=== PATIENT | male | born 1955 | race Caucasian/White ===

== ENCOUNTER 2017-04-13 08:20 | Inpatient (IN) ==
[2017-04-13] MEDS ORDERED: LEVOFLOXACIN 750 MG/150 ML BAG IV ONE (08:54)
[2017-04-13] MEDS ORDERED: IPRATROPIUM/ALBUTEROL 3 ML AMPUL.NEB NEB ONE (08:54)
[2017-04-13] MEDS ORDERED: ACETAMINOPHEN 325 MG TABLET PO ONE (08:54)
[2017-04-13] MEDS ORDERED: 0.9 % SODIUM CHLORIDE 1,000 ML IV ONE (08:54)
[2017-04-13] MEDS ORDERED: methylPREDNISolone SOD SUCC 125 MG/2 ML VIAL IV ONE (08:54)
[2017-04-13] MEDS ORDERED: OSELTAMIVIR PHOSPHATE 75 MG CAPSULE PO ONE (08:56)
--- NOTE | 2017-04-13 08:59 | Emergency Department Note ---
SOB HPI - General Chief Complaint: Shortness of Breath/Dyspnea Stated Complaint: Shortness of breath Time Seen by Provider: 04/13/17 08:44 Source: EMS Mode of arrival: EMS Limitations: no limitations - History of Present Illness Presents, brought in by and caregiver from home. 24 hours of sudden onset fevers chills and cough. Hypoxic at home, 84% on room monitor. Diminished mentation with generalized weakness. Poor historian, traumatic brain injury. states hospitalized 1 month ago at [facility], bilateral pneumonia at that time. History of emphysema, on Spiriva. - Related Data Home Medications Medication Instructions Recorded Confirmed DULoxetine 60 mg PO DAILY 11/01/14 10/19/16 Lamotrigine 15 mg PO HS 11/01/14 10/19/16 Morphine Sulfate 15 mg PO BID 11/01/14 10/19/16 OLANZapine [Olanzapine] 20 mg PO BID 11/01/14 10/19/16 Propranolol 60 mg PO DAILY 11/01/14 10/19/16 Furosemide [Lasix] 20 mg PO DAILY 12/18/14 10/19/16 Potassium Chloride [Kdur] 10 meq PO ONCE 10/19/16 10/19/16 Allergies Allergy/AdvReac Type Severity Reaction Status Date / Time lorazepam [From Ativan] AdvReac Unknown Other Verified 04/13/17 08:24 Review of Systems Constitutional: Reports: fever, chills Respiratory: Reports: shortness of breath, cough Past Medical History - Past Medical History Attestation: Yes: The following information was validated with the patient. Medical history: Reports: COPD, hypertension, other (Brain tumor, left ventricular dysfunction) Psychiatric history: Reports: bipolar Surgical history ED: Reports: non-contributory, other (Surgery to remove a brain tumor) Family history: Reports: non-contributory - Social History smoking status: Former smoker Alcohol use: Reports: Unknown Drug use: Reports: unknown Physical Exam Limitations: no limitations General appearance: lethargic, malaise Head: atraumatic, normocephalic Eye: Present: normal appearance ENT: normal exam, mucous membranes moist Neck: Present: normal inspection. Absent: lymphadenopathy Chest: Present: normal inspection Respiratory: Present: normal lung sounds bilaterally, other (Panting). Absent: respiratory distress Cardiovascular: Present: regular rate Abdominal: Present: soft. Absent: tenderness Extremities: Present: pretibial edema (2+, nonpitting) Neurological: Absent: alert Skin: Present: warm, dry Course Vital Signs Temperature 101.3 F H 04/13/17 08:21 Pulse Rate 109 H 04/13/17 08:21 Respiratory Rate 18 04/13/17 08:21 Blood Pressure 155/108 04/13/17 08:21 Pulse Oximetry (%) 84 L 04/13/17 08:21 Temperature 101.3 F H 04/13/17 08:21 Pulse Rate 109 H 04/13/17 08:21 Respiratory Rate 20 04/13/17 08:43 Blood Pressure 155/108 04/13/17 08:21 Pulse Oximetry (%) 84 L 04/13/17 08:21 Disposition Pt seen by PRECONSTRUCTION MANAGER/PA only: No Clinical Impression: Hypoxia, Acute febrile illness Summary: Suspect influenza with superimposed pneumonia Initial orders, workup ordered Patient signed out to Dr. Roca, please see his note for discussion of findings , final diagnosis and disposition Referrals: Vic Nayak MD [Primary Care Provider] -
[2017-04-13 09:30] LABS: Basophils # (Auto) 0 K/mcL (0.0-0.3); Basophils % (Auto) 0 % (0.0-2.0); Eosinophils # (Auto) 0.1 K/mcL (0.0-0.7); Eosinophils % (Auto) 2.3 % (0.0-7.0); Granulocytes % (Auto) 81.2 % (38.0-78.0); Lymphocytes # (Auto) 0.6 K/mcL (1.5-4.8); Lymphocytes % (Auto) 9.3 % (15.5-49.0); Mean Corpuscular HGB Conc 33.8 g/dL (31.0-36.0); Mean Corpuscular Hemoglobin 30.8 pg (26.0-34.0); Monocytes # (Auto) 0.5 K/mcL (0.1-0.9); Monocytes % (Auto) 7.2 % (1.0-12.0); Platelet Count 101 K/mcL (140-440); RBC 4.32 M/mcL (4.50-5.90)
[2017-04-13 09:57] LABS: ALT/SGPT 45 U/l (0-40); Alkaline Phosphatase 106 U/L (39-117); Blood Urea Nitrogen 15 mg/dl (6-20)
--- NOTE | 2017-04-13 10:32 | XRay Report ---
CLINICAL INFORMATION: Fever and hypoxia COMPARISON: 03/31/2015 FINDINGS: The heart is mildly enlarged but unchanged. Ectatic thoracic aorta again noted. Pulmonary vessels are unremarkable. Small patchy infiltrate has developed in the left base. Minor scarring. IMPRESSION: Small patchy left basilar infiltrate. Suggest two-view upright chest x-ray for better assessment in one to two days Interpreted and Authenticated by: Nabeel Narvaez 04/13/17
--- NOTE | 2017-04-13 11:03 | Emergency Department Note ---
SOB HPI - General Chief Complaint: Shortness of Breath/Dyspnea Stated Complaint: Shortness of breath Time Seen by Provider: 04/13/17 08:44 Source: patient, family, EMS Mode of arrival: EMS Limitations: no limitations - History of Present Illness This patient was checked out to me by Dr. cardoza at shift change. I reviewed his note. - Related Data Home Medications Medication Instructions Recorded Confirmed DULoxetine HCL [Cymbalta] 60 mg PO DAILY 11/01/14 04/13/17 OLANZapine [Olanzapine] 20 mg PO HS 11/01/14 04/13/17 lamoTRIgine [Lamictal] 200 mg PO DAILY 11/01/14 04/13/17 morphine [Ms Contin] 15 mg PO BID 11/01/14 04/13/17 Furosemide [Lasix] 20 mg PO DAILY 12/18/14 04/13/17 Potassium Chloride [Kdur] 10 meq PO ONCE 10/19/16 04/13/17 Albuterol Sulfate [Ventolin] 2 puff INH Q4HP PRN 04/13/17 04/13/17 Gabapentin [Neurontin] 600 mg PO HS 04/13/17 04/13/17 Tiotropium [place] [Spiriva] 18 mcg INH DAILY 04/13/17 04/13/17 amLODIPine [Norvasc] 5 mg PO DAILY 04/13/17 04/13/17 buPROPion HCL [Wellbutrin Xl] 300 mg PO DAILY 04/13/17 04/13/17 levETIRAcetam [Keppra] 250 mg PO HS 04/13/17 04/13/17 Allergies Allergy/AdvReac Type Severity Reaction Status Date / Time lorazepam [From Ativan] AdvReac Intermediate "makes me Verified 04/13/17 12:25 go crazy" Review of Systems Constitutional: Reports: fever, chills Respiratory: Reports: shortness of breath, cough Past Medical History - Past Medical History Medical history: Reports: COPD, hypertension, other (Brain tumor, left ventricular dysfunction) Psychiatric history: Reports: bipolar Surgical history ED: Reports: non-contributory, other (Surgery to remove a brain tumor) - Social History smoking status: Former smoker Alcohol use: Reports: Unknown Drug use: Reports: unknown Physical Exam Limitations: no limitations General appearance: lethargic, malaise Course Vital Signs Temperature 101.3 F H 04/13/17 08:21 Pulse Rate 109 H 04/13/17 08:21 Respiratory Rate 18 04/13/17 08:21 Blood Pressure 155/108 04/13/17 08:21 Pulse Oximetry (%) 84 L 04/13/17 08:21 Temperature 98.2 F 04/14/17 04:00 Pulse Rate 79 04/14/17 04:00 Respiratory Rate 20 04/14/17 04:00 Blood Pressure 108/66 04/14/17 04:00 Pulse Oximetry (%) 94 04/14/17 04:00 Shortness of Breath/Dyspnea - Lab Data Lab results reviewed: Yes I reviewed the patient's lab results. Result diagrams: 04/14/17 03:45 04/13/17 09:01 Lab Results 04/13/17 04/13/17 04/13/17 Range/Units 09:01 09:01 09:01 WBC 6.3 (4.5-11.0) K/mcL RBC 4.32 L (4.50-5.90) M/mcL Hgb 13.3 L (13.5-16.5) g/dL Hct 39.3 L (41.0-55.0) % MCV 91.0 (80.0-100.0) fL MCH 30.8 (26.0-34.0) pg MCHC 33.8 (31.0-36.0) g/dL RDW 16.0 H (11.5-14.5) % Plt Count 101 L (140-440) K/mcL MPV 7.9 (7.4-10.4) fL Gran % 81.2 H (38.0-78.0) % Lymph % (Auto) 9.3 L (15.5-49.0) % Foard % (Auto) 7.2 (1.0-12.0) % Eos % (Auto) 2.3 (0.0-7.0) % Baso % (Auto) 0 (0.0-2.0) % Gran # 5.1 (1.8-8.0) K/mcL Lymph # (Auto) 0.6 L (1.5-4.8) K/mcL Foard # (Auto) 0.5 (0.1-0.9) K/mcL Eos # (Auto) 0.1 (0.0-0.7) K/mcL Baso # (Auto) 0 (0.0-0.3) K/mcL VBG Lactic Acid (0.5-2.2) mmol/L Sodium 136 (133-145) mmol/L Potassium 4.1 (3.3-5.1) mmol/L Chloride 99 (96-108) mmol/L Carbon Dioxide 24 (22-30) mmol/L Anion Gap 13.0 (8-16) BUN 15 (6-20) mg/dl Creatinine 0.9 (0.7-1.2) mg/dl GFR Calculation 93 Glucose 136 H (70-105) mg/dL Calcium 8.9 (8.6-10.4) mg/dl Total Bilirubin 0.7 (0.0-1.0) mg/dL AST 58 H (0-37) U/l ALT 45 H (0-40) U/l Alkaline Phosphatase 106 (39-117) U/L Total Protein 8.2 (5.9-8.4) gm/dL Albumin 4.0 (3.2-5.2) gm/dL Globulin 4.2 H (2.2-3.7) gm/dL Albumin/Globulin Ratio 1.0 (1.0-2.3) Procalcitonin 0.11 (<0.10) ng/mL 04/13/17 Range/Units 09:01 WBC (4.5-11.0) K/mcL RBC (4.50-5.90) M/mcL Hgb (13.5-16.5) g/dL Hct (41.0-55.0) % MCV (80.0-100.0) fL MCH (26.0-34.0) pg MCHC (31.0-36.0) g/dL RDW (11.5-14.5) % Plt Count (140-440) K/mcL MPV (7.4-10.4) fL Gran % (38.0-78.0) % Lymph % (Auto) (15.5-49.0) % Foard % (Auto) (1.0-12.0) % Eos % (Auto) (0.0-7.0) % Baso % (Auto) (0.0-2.0) % Gran # (1.8-8.0) K/mcL Lymph # (Auto) (1.5-4.8) K/mcL Foard # (Auto) (0.1-0.9) K/mcL Eos # (Auto) (0.0-0.7) K/mcL Baso # (Auto) (0.0-0.3) K/mcL VBG Lactic Acid 1.6 (0.5-2.2) mmol/L Sodium (133-145) mmol/L Potassium (3.3-5.1) mmol/L Chloride (96-108) mmol/L Carbon Dioxide (22-30) mmol/L Anion Gap (8-16) BUN (6-20) mg/dl Creatinine (0.7-1.2) mg/dl GFR Calculation Glucose (70-105) mg/dL Calcium (8.6-10.4) mg/dl Total Bilirubin (0.0-1.0) mg/dL AST (0-37) U/l ALT (0-40) U/l Alkaline Phosphatase (39-117) U/L Total Protein (5.9-8.4) gm/dL Albumin (3.2-5.2) gm/dL Globulin (2.2-3.7) gm/dL Albumin/Globulin Ratio (1.0-2.3) Procalcitonin (<0.10) ng/mL ABG shows pH 7.37 PCO2 52 PO2 of 67 on 2 L nasal cannula - Radiology Data Radiology results reviewed: Yes I reviewed the patient's radiology results. Chest x-ray shows left lower lobe infiltrate likely - EKG Data EKG attestation: Yes I reviewed and interpreted this EKG. EKG results narrative: EKG shows a rate of 102 long UT left axis deviation. Sinus tachycardia with nonspecific ST elevation in V1 and V2 minimal Disposition Pt seen by TRANSPORTATION JOB TITLES/PA only: No Clinical Impression: Hypoxia, Acute febrile illness Community acquired pneumonia Qualifiers: Laterality: left Lung location: lower lobe of lung Qualified Code(s): J18.1 - Lobar pneumonia, unspecified organism Summary: Patient is found to have likely pneumonia left lower lobe along with new hypoxia. He was recently admitted and discharged from [facility] for bilateral pneumonia about a month ago. Blood cultures were done and Levaquin and Tamiflu were started. Though flu swab was negative. Steroids were started as he has a history of reactive airways with likely COPD is a former smoker. See Dr. cardoza's orders He is going to require hospitalization secondary to new hypoxia, fever and need for IV antibiotics for pneumonia. I discussed the case with Dr. Daley, the hospitalist, she agreed to accept patient in transfer Disposition: Xfer As Inpt ([facility]) Condition: Fair
[2017-04-13] MEDS ORDERED: MAGNESIUM HYDROXIDE 30 ML ORAL.SUSP PO PRN (11:57)
[2017-04-13] MEDS ORDERED: ACETAMINOPHEN 325 MG TABLET PO PRN (11:57)
[2017-04-13] MEDS ORDERED: IPRATROPIUM/ALBUTEROL 3 ML AMPUL.NEB NEB PRN (11:57)
[2017-04-13] MEDS: 0.9 % SODIUM CHLORIDE 10 ML SYRINGE IV SCH ×2 (14:52→21:51)
--- NOTE | 2017-04-13 18:10 | Internal Med History&Physical ---
Medical - H&P: HPI Patient information: Note initiated : 04/13/17 at 5:51 pm Service Date, if different from initiated Date: [] Patient: John Thomas a 61 y/o M admitted on 04/13/17 for Shortness of breath. Chief Complaint: [shortness of breath and fever] History of present illness: Mr. Thomas is a 61 year old M, brought to ED by significant other Piedad, with sudden onset of fever, chills and cough. Patient was hypersomnolent and spot check by home oximeter showed O2 sat of 84%. Patient is on multiple meds for chronic back pain and has history of VIET, but is usually not hypersomnolent like this am. Patient had similar presentation in early Feb when he presented to [facility] and was diagnosed with pneumonia and treated with Rocephin and Azithromycin. CXR showed 'blunting of costophrenic angle'. 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 Since then has been 'forgetful' and impulsive'. However, is still active. C/O chronic back pain due to injury many years ago. - Constitutional Constitutional: Present: chills, fever(s) - Cardiovascular Cardiovascular: Absent: chest pain, orthopnea, palpatations - Respiratory Respiratory: Present: cough. 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 VIET Morbid obesity Hx of esophageal varices (due to hx of alcohol abuse) Chronic diastolic heart failure Chronic low back pain Narcotic dependence Nicotine use (cigars) Anxiety Depression Surgical history: S/P temperoparietal occipital craniotomy Feb 2015 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, 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 Smoking status: Light tobacco smoker Have you smoked in the last 12 months: Yes Time spent discussing smoking cessation with patient: 3 to 10 minutes Drug use: none Alcohol use: none Medical - H&P: Meds Home Medications Medication Instructions Recorded Confirmed Type DULoxetine HCL [Cymbalta] 60 mg PO DAILY 11/01/14 04/13/17 History OLANZapine [Olanzapine] 20 mg PO HS 11/01/14 04/13/17 History lamoTRIgine [Lamictal] 200 mg PO DAILY 11/01/14 04/13/17 History morphine [Ms Contin] 15 mg PO BID 11/01/14 04/13/17 History Furosemide [Lasix] 20 mg PO DAILY 12/18/14 04/13/17 History Potassium Chloride [Kdur] 10 meq PO ONCE 10/19/16 04/13/17 History Albuterol Sulfate [Ventolin] 2 puff INH Q4HP PRN 04/13/17 04/13/17 History Gabapentin [Neurontin] 600 mg PO HS 04/13/17 04/13/17 History Tiotropium [place] [Spiriva] 18 mcg INH DAILY 04/13/17 04/13/17 History amLODIPine [Norvasc] 5 mg PO DAILY 04/13/17 04/13/17 History buPROPion HCL [Wellbutrin Xl] 300 mg PO DAILY 04/13/17 04/13/17 History levETIRAcetam [Keppra] 250 mg PO HS 04/13/17 04/13/17 History Allergies Allergy/AdvReac Type Severity Reaction Status Date / Time lorazepam [From Ativan] AdvReac Intermediate "makes me Verified 04/13/17 12:25 go crazy" Medical - H&P: Exam - Constitutional Vitals: Temp Pulse Resp BP Pulse Ox 98.0 F 85 22 126/75 93 04/13/17 16:00 04/13/17 16:00 04/13/17 16:00 04/13/17 16:00 04/13/17 16:00 General appearance: morbidly obese - Head Head exam: Present: normal inspection - Eye Eye exam: Present: EOMI, PERRL - Neck Neck exam: Present: normal inspection - Respiratory Respiratory exam: Present: decreased breath sounds - Cardiovascular Cardiovascular exam: Present: normal rate and rhythm - GI/Abdominal GI/Abdominal exam: Present: normal bowel sounds, soft - Extremities Exam Extremities exam: Present: pedal edema Medical - H&P: Reslt - Labs CBC & Chem 7: 04/13/17 09:01 04/13/17 09:01 Labs: Short CBC 04/13/17 Range/Units 09:01 WBC 6.3 (4.5-11.0) K/mcL Hgb 13.3 L (13.5-16.5) g/dL Hct 39.3 L (41.0-55.0) % Plt Count 101 L (140-440) K/mcL BMP 04/13/17 09:01 Sodium 136 Potassium 4.1 Chloride 99 Carbon Dioxide 24 BUN 15 Creatinine 0.9 Glucose 136 H Calcium 8.9 Liver Function 04/13/17 Range/Units 09:01 Total Bilirubin 0.7 (0.0-1.0) mg/dL AST 58 H (0-37) U/l ALT 45 H (0-40) U/l Alkaline Phosphatase 106 (39-117) U/L Albumin 4.0 (3.2-5.2) gm/dL - ABG Interpretation Interpretation: respiratory acidosis - EKG Data EKG shows normal: sinus rhythm Medical - H&P: A/P - Narrative A/P Narrative: 61-year-old male presented 04/13 with the following problems: + Fever and cough CXR: small left basilar infiltrate. WBC and procalcitonin: wnl DD viral syndrome Empiric: oseltamivir, Levofloxacin + Hypoxic on presentation (a/w hypersomnolence) dd obesity-hypoventilation syndrome, drug-related hypopnea no recent changes in medical regimen. Patient has been on chronic narcotics and anti-depressants. ABG on RA: 7.37, pCO2 52, pO2 67 + VIET Using CPAP HS + Morbid Obesity + LV Dysfunction + Esophageal varices related to prior ETOH abuse + Chronic back pain and narcotic dependence + Hyperglycemia Will evaluate for DM and check A1C + Hx of craniotomy for tumor/abscesses Mild cognitive impairment DVT prophylaxis: Lovenox Code status: full
[2017-04-13] MEDS ORDERED: morphine 15 MG TAB.SR.12H PO ONE (19:30)
[2017-04-13] MEDS: morphine 15 MG TAB.SR.12H PO SCH (19:31)
[2017-04-13] MEDS: GABAPENTIN 300 MG CAPSULE PO SCH (21:50)
[2017-04-13] MEDS: levETIRAcetam 500 MG TABLET PO SCH (21:50)
[2017-04-13] MEDS: OSELTAMIVIR PHOSPHATE 75 MG CAPSULE PO SCH (21:50)
[2017-04-13] MEDS: OLANZapine 5 MG TABLET PO SCH (21:51)
[2017-04-14 04:59] LABS: Mean Cell Volume 92.1 fL (80.0-100.0); Mean Corpuscular HGB Conc 33.4 g/dL (31.0-36.0); Mean Corpuscular Hemoglobin 30.7 pg (26.0-34.0); Platelet Count 92 K/mcL (140-440)
[2017-04-14 05:57] LABS: Anisocytosis 1+ (NONE SEEN); Band Neutrophils % 18 % (0-10); Lymphocytes % 6 % (15-49); Metamyelocytes % 1 % (0-0); Monocytes % (Manual) 4 % (1-12); Platelet Estimate DECREASED (NORMAL); RBC Morphology ABNORM (NORMAL); Segmented Neutrophils % 71 % (38-78)
[2017-04-14 06:14] LABS: Hemoglobin A1C 6.1 % HGB (4.0-6.0)
[2017-04-14] MEDS: 0.9 % SODIUM CHLORIDE 10 ML SYRINGE IV SCH ×3 (06:25→20:21)
[2017-04-14] MEDS ORDERED: LEVOFLOXACIN 750 MG/150 ML BAG IV SCH (09:00)
[2017-04-14] MEDS: buPROPion 150 MG TAB.XL.24H PO SCH (09:37)
[2017-04-14] MEDS: DULoxetine 30 MG CAPSULE PO SCH (09:37)
[2017-04-14] MEDS: amLODIPine 5 MG TABLET PO SCH (09:38)
[2017-04-14] MEDS: FUROSEMIDE 20 MG TABLET PO SCH (09:38)
[2017-04-14] MEDS: morphine 15 MG TAB.SR.12H PO SCH ×2 (09:38→20:16)
[2017-04-14] MEDS: OSELTAMIVIR PHOSPHATE 75 MG CAPSULE PO SCH ×2 (09:38→20:16)
[2017-04-14] MEDS ORDERED: PNEUMOCOCCAL 23-VAL P-SAC VAC 0.5 ML VIAL IM ONE (10:00)
[2017-04-14] MEDS ORDERED: FLU VACC QS2017-18 36MOS UP/PF 60 MCG/0.5 ML SYRINGE IM ONE (10:00)
[2017-04-14] MEDS: lamoTRIgine 100 MG TABLET PO SCH (10:10)
[2017-04-14] MEDS: ENOXAPARIN 40 MG/0.4 ML SYRINGE SQ SCH (10:11)
--- NOTE | 2017-04-14 14:29 | Internal Med Progress Note ---
Medical - PN: Subj Patient information: Note initiated : 04/14/17 at 2:24 pm Service Date, if different from initiated Date: [] Patient: John Thomas a 61 y/o M admitted on 04/13/17 for Shortness of Breath/ Fever, Cough, Hypoxia. Interval history: History of present illness: Mr. Thomas is a 61 year old M, brought to ED by significant other Piedad, with sudden onset of fever, chills and cough. Patient was hypersomnolent and spot check by home oximeter showed O2 sat of 84%. Patient is on multiple meds for chronic back pain and has history of VIET, but is usually not hypersomnolent like this am. Patient had similar presentation in early Feb when he presented to [facility] and was diagnosed with pneumonia and treated with Rocephin and Azithromycin. CXR showed 'blunting of costophrenic angle'. 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 Since then has been 'forgetful' and impulsive'. However, is still active. C/O chronic back pain due to injury many years ago. 3: Admitted with fever, hypoxia and small left basilar infiltrate Other: morbid obesity, chronic pain sx and narcotic dependence. Borderline DM 04/14: O2 sats around 88% on RA when dozing off in chair. Appears comfortable otherwise. Minimally coughing. Counseled on healthy diet: limit carb intake - Constitutional Vitals: Vital Signs Temp Pulse Resp BP Pulse Ox 96.9 F L 79 12 116/72 94 04/14/17 11:36 04/14/17 11:36 04/14/17 11:36 04/14/17 11:36 04/14/17 11:36 Period Temp Pulse Resp BP Sys/[place]spinosa Pulse Ox Last 24 Hr 96.9 F-98.3 F 79-86 12-22 108-128/66-75 88-94 Intake and Output 04/14/17 04/14/17 04/14/17 05:59 13:59 21:59 Intake Total 600 / 600 390 / 390 Output Total 550 / 550 Balance 600 / 600 -160 / -160 Weight 285 lb Patient Weight 04/15/17 05:59 Weight 285 lb Intake & Output: Intake & Output 04/14/17 04/14/17 04/14/17 05:59 13:59 21:59 Intake Total 600 / 600 390 / 390 Output Total 550 / 550 Balance 600 / 600 -160 / -160 Weight 285 lb Intake: IV 150 / 150 Oral 600 / 600 240 / 240 Output: Void Amount 550 / 550 Other: Meal Lunch Percent of Meal Consumed 100% # Voids 1 2 # Bowel Movements 1 General appearance: morbidly obese, no acute distress - Respiratory Respiratory exam: Present: decreased breath sounds - Cardiovascular Cardiovascular exam: Present: normal rate and rhythm - GI/Abdominal GI/Abdominal exam: Present: normal bowel sounds, soft - Extremities Exam Extremities exam: Present: normal inspection Medical - PN: Obj Da - Labs CBC & Chem 7: 04/14/17 03:45 04/13/17 09:01 Labs: Abnormal Lab Results 04/14/17 04/14/17 04/13/17 03:45 03:45 09:01 RBC 4.20 L Hgb 12.9 L Hct 38.7 L RDW 16.0 H Plt Count 92 L Gran % Lymph % (Auto) Lymph # (Auto) Band Neutrophils % 18 H Lymphocytes % 6 L Metamyelocytes % 1 H Platelet Estimate Decreased A RBC Morphology Abnorm A Anisocytosis 1+ A Glucose 136 H Hemoglobin A1c 6.1 H AST 58 H ALT 45 H Globulin 4.2 H 04/13/17 09:01 RBC 4.32 L Hgb 13.3 L Hct 39.3 L RDW 16.0 H Plt Count 101 L Gran % 81.2 H Lymph % (Auto) 9.3 L Lymph # (Auto) 0.6 L Band Neutrophils % Lymphocytes % Metamyelocytes % Platelet Estimate RBC Morphology Anisocytosis Glucose Hemoglobin A1c AST ALT Globulin Meds: Medications Acetaminophen (Tylenol) 650 mg PO Q6HP PRN PRN Reason: PAIN/FEVER > 101 Last Admin: 04/13/17 17:25 Dose: 650 mg Albuterol/Ipratropium (Duoneb) 3 ml NEB Q4HP PRN PRN Reason: Wheezing Amlodipine Besylate (Norvasc) 5 mg PO DAILY [facility] Last Admin: 04/14/17 09:38 Dose: 5 mg Bupropion HCl (Wellbutrin Xl) 300 mg PO DAILY [facility] Last Admin: 04/14/17 09:37 Dose: 300 mg Duloxetine HCl (Cymbalta) 60 mg PO DAILY [facility] Last Admin: 04/14/17 09:37 Dose: 60 mg Enoxaparin Sodium (Lovenox) 40 mg SQ DAILY [facility] Last Admin: 04/14/17 10:11 Dose: 40 mg Furosemide (Lasix) 20 mg PO DAILY [facility] Last Admin: 04/14/17 09:38 Dose: 20 mg Gabapentin (Neurontin) 600 mg PO HS [facility] Last Admin: 04/13/17 21:50 Dose: 600 mg Levofloxacin (Levaquin) 750 mg in 150 mls @ 100 mls/hr IV Q24H [facility] Last Infusion: 04/14/17 11:45 Dose: Infused Lamotrigine (Lamictal) 200 mg PO DAILY [facility] Last Admin: 04/14/17 10:10 Dose: 200 mg Levetiracetam (Keppra) 250 mg PO HS [facility] Last Admin: 04/13/17 21:50 Dose: 250 mg Magnesium Hydroxide (Milk Of Magnesia) 30 ml PO DAILYP PRN PRN Reason: Constipation Morphine Sulfate (Ms Contin) 15 mg PO BID [facility] Last Admin: 04/14/17 09:38 Dose: 15 mg Olanzapine (Zyprexa) 20 mg PO HS [facility] Last Admin: 04/13/17 21:51 Dose: 20 mg Oseltamivir Phosphate (Tamiflu) 75 mg PO BID [facility] Stop: 04/18/17 09:01 Last Admin: 04/14/17 09:38 Dose: 75 mg Sodium Chloride (Saline Flush) 10 ml IV Q8 [facility] Last Admin: 04/14/17 13:38 Dose: 10 ml Medical - PN: A/P - Time Spent With Patient Total time spent is greater than 50% in coordination of care (as documented) at patient's floor/unit and/or counseling patient: less than 15 minutes - Narrative A/P Narrative: A/P Narrative: 61-year-old male presented 04/13 with the following problems: + Fever and cough CXR: small left basilar infiltrate. WBC and procalcitonin: wnl DD viral syndrome Empiric: oseltamivir, Levofloxacin Improving. Will switch to po levo (04/14) + Hypoxic on presentation (a/w hypersomnolence) dd obesity-hypoventilation syndrome, drug-related hypopnea no recent changes in medical regimen. Patient has been on chronic narcotics and anti-depressants. ABG on RA: 7.37, pCO2 52, pO2 67 + VIET Using CPAP HS + Morbid Obesity + LV Dysfunction + Esophageal varices related to prior ETOH abuse + Chronic back pain and narcotic dependence + Hyperglycemia Will evaluate for DM and check A1C + Hx of craniotomy for tumor/abscesses Mild cognitive impairment DVT prophylaxis: Lovenox Code status: full
[2017-04-14] MEDS: GABAPENTIN 300 MG CAPSULE PO SCH (20:16)
[2017-04-14] MEDS: OLANZapine 5 MG TABLET PO SCH (20:16)
[2017-04-14] MEDS: levETIRAcetam 500 MG TABLET PO SCH (20:17)
[2017-04-15] MEDS: 0.9 % SODIUM CHLORIDE 10 ML SYRINGE IV SCH (06:09)
[2017-04-15] MEDS: OSELTAMIVIR PHOSPHATE 75 MG CAPSULE PO SCH (08:42)
[2017-04-15] MEDS: DULoxetine 30 MG CAPSULE PO SCH (08:42)
[2017-04-15] MEDS: morphine 15 MG TAB.SR.12H PO SCH (08:42)
[2017-04-15] MEDS: FUROSEMIDE 20 MG TABLET PO SCH (08:42)
[2017-04-15] MEDS: buPROPion 150 MG TAB.XL.24H PO SCH (08:43)
[2017-04-15] MEDS: amLODIPine 5 MG TABLET PO SCH (08:43)
[2017-04-15] MEDS: lamoTRIgine 100 MG TABLET PO SCH (08:43)
[2017-04-15] MEDS ORDERED: LEVOFLOXACIN 750 MG TABLET PO SCH (09:00)
[2017-04-15] MEDS: ENOXAPARIN 40 MG/0.4 ML SYRINGE SQ SCH (09:01)
--- NOTE | 2017-04-15 09:04 | Discharge Summary ---
Medical - DS: Prov Patient information: Note initiated : 04/15/17 at 8:58 am Service Date, if different from initiated Date: [] Patient: John Thomas 61 y/o M admitted on 04/13/17 for Shortness of Breath/ Fever, Cough, Hypoxia. Date of admission: 04/13/17 12:49 Discharge date: 04/15/17 Primary care physician: Vic Nayak Consults: 04/13/17 10:42 Consult to Physician [CONS] Stat Comment: Consulting Provider: Anusha Daley Reason For Exam: Physician to Consult Medical - DS: Meds - Discharge Medications Prescriptions: Levofloxacin [Levaquin] 750 mg PO DAILY #5 tab Oseltamivir Phosphate [Tamiflu] 75 mg PO BID #6 cap Active and Home Medications: Home Medications DULoxetine HCL [Cymbalta] 60 mg PO DAILY 11/01/14 [History Confirmed 04/13/17 Last Taken 04/13/17 06:50] OLANZapine [Olanzapine] 20 mg PO HS 11/01/14 [History Confirmed 04/13/17 Last Taken 04/12/17 17:30] lamoTRIgine [Lamictal] 200 mg PO DAILY 11/01/14 [History Confirmed 04/13/17 Last Taken 04/13/17 06:50] morphine [Ms Contin] 15 mg PO BID 11/01/14 [History Confirmed 04/13/17 Last Taken 04/12/17 17:30] Furosemide [Lasix] 20 mg PO DAILY 12/18/14 [History Confirmed 04/13/17 Last Taken 04/13/17 06:50] Potassium Chloride [Kdur] 10 meq PO ONCE 10/19/16 [History Confirmed 04/13/17 Last Taken 04/13/17 06:50] Albuterol Sulfate [Ventolin] 2 puff INH Q4HP PRN 04/13/17 [History Confirmed 03/02 Last Taken 04/13/17 05:45] Gabapentin [Neurontin] 600 mg PO HS 04/13/17 [History Confirmed 04/13/17 Last Taken 04/12/17 06:50] Tiotropium [place] [Spiriva] 18 mcg INH DAILY 04/13/17 [History Confirmed Last Taken 04/13/17 05:45] amLODIPine [Norvasc] 5 mg PO DAILY 04/13/17 [History Confirmed 04/13/17 Last Taken 04/13/17 06:50] buPROPion HCL [Wellbutrin Xl] 300 mg PO DAILY 04/13/17 [History Confirmed Last Taken 04/13/17 06:50] levETIRAcetam [Keppra] 250 mg PO HS 04/13/17 [History Confirmed 04/13/17 Last Taken 04/12/17 17:30] Medical - DS: Hosp Hospital course: History of present illness: Mr. Thomas is a 61 year old M, brought to ED by significant other Piedad, with sudden onset of fever, chills and cough. Patient was hypersomnolent and spot check by home oximeter showed O2 sat of 84%. Patient is on multiple meds for chronic back pain and has history of VIET, but is usually not hypersomnolent like this am. Patient had similar presentation in early Feb when he presented to [facility] and was diagnosed with pneumonia and treated with Rocephin and Azithromycin. CXR showed 'blunting of costophrenic angle'. 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 Since then has been 'forgetful' and impulsive'. However, is still active. C/O chronic back pain due to injury many years ago. Patient was admitted with following problems: + Fever and cough CXR: small left basilar infiltrate. WBC and procalcitonin: wnl DD viral syndrome Empiric: oseltamivir, Levofloxacin + Hypoxic on presentation (a/w hypersomnolence) dd obesity-hypoventilation syndrome, drug-related hypopnea no recent changes in medical regimen. Patient has been on chronic narcotics and anti-depressants. ABG on RA: 7.37, pCO2 52, pO2 67 + VIET Using CPAP HS + Morbid Obesity + LV Dysfunction + Esophageal varices related to prior ETOH abuse + Chronic back pain and narcotic dependence + Hyperglycemia. Borderline DM A1C: 6.1 + Hx of craniotomy for tumor/abscesses Mild cognitive impairment Hospital course: Patient improved significantly. He tends to doze off in am, but is easily arousable. During daytime he has been alert and awake. O2 sats on RA > 90%. He has been afebrile. Counseling provided in regards to elevated blood sugars. Dietary recommendations given and importance to keep weight stable, or loose weight stressed. He is discharged in stable and improved condition. Discharge diagnosis: Pneumonia Secondary discharge diagnosis: + VIET Using CPAP HS + Morbid Obesity + LV Dysfunction + Esophageal varices related to prior ETOH abuse + Chronic back pain and narcotic dependence + Hyperglycemia, borderline DM + Hx of craniotomy for tumor/abscesses Mild cognitive impairment Reason for admission: AMS and cough Pertinent studies/significant findings: CXR showed small left basilar infiltrate - Time Spent with Patient Total time spent providing and/or coordinating discharge services: Less than 30 minutes Medical - DS: Exam - Constitutional Vitals: Vital Signs Temp Pulse Pulse Resp BP Pulse Ox 04/15/17 07:04 98.5 F 16 136/74 93 04/15/17 04:00 98.8 F 83 16 132/68 90 04/14/17 22:00 92 04/14/17 20:00 98.5 F 83 20 151/84 94 04/14/17 16:58 92 H 16 93 04/14/17 15:42 96.2 F L 16 136/78 97 04/14/17 11:36 96.9 F L 79 12 116/72 94 Intake and Output 04/14/17 04/15/17 04/15/17 21:59 05:59 13:59 Intake Total 1040 / 1040 375 / 375 480 / 480 Output Total 700 / 700 550 / 550 350 / 350 Balance 340 / 340 -175 / -175 130 / 130 Intake: Oral 1040 / 1040 375 / 375 480 / 480 Output: Void Amount 700 / 700 550 / 550 350 / 350 Other: Meal Dinner Breakfast Percent of Meal Consumed 100% 100% Feeding Ability Independent Weight 263 lb General appearance: morbidly obese - Respiratory Respiratory exam: Present: normal respiratory exam - Cardiovascular Cardiovascular exam: Present: normal rate and rhythm - GI/Abdominal GI/Abdominal exam: Present: normal bowel sounds - Extremities Exam Extremities exam: Present: normal inspection Medical - DS: Data Labs on day of discharge: Preliminary micro results at discharge 04/13/17 09:12 Blood Culture - Preliminary Blood 04/13/17 09:01 Blood Culture - Preliminary Blood Medical - DS: A/P - Patient/Caregiver Discharge Instructions Activity: resume usual activities as tolerated Diet: Consistent Carbohydrate Additional Instructions: At risk for developing Diabetes Mellitus: Limit intake of concentrated sweets ( such as soft drinks, ice cream, desserts) Recommend losing weight, at least maintain weight. Recheck A1C and weight in 3-4 weeks. FU with PCP. - Follow up Plan Follow up with: Vic Nayak MD [Primary Care Provider] - (FU in 3-4 weeks. Borderline DM. A1C: 6.1. Morbid obesity. ) Disposition: Home, Self-Care Prognosis: Fair Rehab Potential: Fair Overall status at discharge: patient is not back to baseline
== END 2017-04-15 13:26 | disposition home or self-care (01) | DRG 194 ==
LOC: ED 08:20 → MEDSUR 12:40
PROVIDERS: ADMIT Specialist; ATTEND Specialist

== ENCOUNTER 2017-05-09 09:57 | Observation (INO) ==
[2017-05-09] MEDS ORDERED: IOPAMIDOL 100 ML BOTTLE IV ONE (09:58)
--- NOTE | 2017-05-09 10:27 | Emergency Department Note ---
Altered Mental Status HPI - General Chief Complaint: Altered Mental Status Stated Complaint: low o2 sat, pale, productive cough, alt loc Time Seen by Provider: 05/09/17 10:10 Source: patient, other Mode of arrival: ambulatory Limitations: no limitations - History of Present Illness HPI Narrative: History is obtained from the caregiver who is with him this morning. Apparently the caregiver yesterday hooked him up to an oximeter and his O2 sats were as low as 82%. He is mainly here today because the caregiver perceived that he was hallucinating, he does wear CPAP at night, he continues to smoke cigarettes, admitted to hospital first part of April for pneumonia, he was admitted one month prior to that at [facility] also for pneumonia, continues to smoke cigarettes, is having memory issues secondary to brain tumor in the past which was operated on and he's had memory issues ever since then. Denies any chest pain, he does have a cough, nonproductive, feels a little bit short of breath but denies any focal one sided weakness, no syncope no fevers, no nausea or vomiting or diarrhea. MD complaint: confusion, weakness - Related Data Home Medications Medication Instructions Recorded Confirmed DULoxetine HCL [Cymbalta] 60 mg PO DAILY 11/01/14 04/13/17 OLANZapine [Olanzapine] 20 mg PO HS 11/01/14 04/13/17 lamoTRIgine [Lamictal] 200 mg PO DAILY 11/01/14 04/13/17 morphine [Ms Contin] 15 mg PO BID 11/01/14 04/13/17 Furosemide [Lasix] 20 mg PO DAILY 12/18/14 04/13/17 Albuterol Sulfate [Ventolin] 2 puff INH Q4HP PRN 04/13/17 04/13/17 Gabapentin [Neurontin] 600 mg PO HS 04/13/17 04/13/17 Tiotropium [place] [Spiriva] 18 mcg INH DAILY 04/13/17 04/13/17 amLODIPine [Norvasc] 5 mg PO DAILY 04/13/17 04/13/17 buPROPion HCL [Wellbutrin Xl] 300 mg PO DAILY 04/13/17 04/13/17 levETIRAcetam [Keppra] 250 mg PO HS 04/13/17 04/13/17 Previous Rx's Medication Instructions Recorded Levofloxacin [Levaquin] 750 mg PO DAILY #5 tab 04/15/17 Oseltamivir Phosphate [Tamiflu] 75 mg PO BID #6 cap 04/15/17 Allergies Allergy/AdvReac Type Severity Reaction Status Date / Time lorazepam [From Ativan] AdvReac Intermediate "makes me Verified 04/13/17 12:25 go crazy" Review of Systems Limitations: ROS unobtainable due to patients medical condition Constitutional: Denies: fever, chills ENT ED: Denies: ear pain, throat pain Cardiovascular: Reports: dyspnea on exertion. Denies: chest pain, palpitations Respiratory: Reports: shortness of breath, cough Past Medical History - Past Medical History Source: nursing notes reviewed Medical history: Reports: COPD, hypertension, other (Brain tumor, left ventricular dysfunction) Psychiatric history: Reports: bipolar Surgical history ED: Reports: other (Surgery to remove a brain tumor, sp craniotomy) Family history: Reports: no significant family history - Social History smoking status: Current every day smoker Alcohol use: Reports: Rarely Drug use: Reports: unknown Physical Exam Limitations: no limitations General appearance: alert, in no apparent distress Head: atraumatic, normocephalic Eye: Present: normal appearance, PERRL, EOMI ENT: normal exam, normal oropharynx, mucous membranes moist Neck: Present: normal inspection, full ROM, trachea midline Chest: Present: normal inspection Respiratory: Present: wheezes. Absent: respiratory distress Cardiovascular: Present: regular rate, normal rhythm, normal heart sounds Abdominal: Present: soft. Absent: distention, tenderness Extremities: Present: normal inspection, full ROM Back: Present: normal inspection, full ROM. Absent: CVA tenderness (R), CVA tenderness (L), vertebral tenderness Neurological: Present: alert, oriented X3, CN II-XII intact. Absent: motor sensory deficit Psychiatric: Present: flat affect Skin: Present: warm, dry, intact. Absent: cyanosis Course Vital Signs Temperature 97.0 F 05/09/17 09:58 Pulse Rate 80 05/09/17 09:58 Blood Pressure 132/81 05/09/17 09:58 Pulse Oximetry (%) 93 05/09/17 09:58 Temperature 97.0 F 05/09/17 09:58 Pulse Rate 79 05/09/17 12:32 Respiratory Rate 17 05/09/17 12:32 Blood Pressure 115/72 05/09/17 12:32 Pulse Oximetry (%) 92 05/09/17 12:32 Altered Mental Status - MDM Narrative Medical decision making narrative: Patient was started on breathing treatments, Solu-Medrol and an oxygen of. We did end up doing a CT scan of his chest as his d-dimer was elevated. Interval clearing of this pneumonia. Final impression is COPD exacerbation. Plan he will be admitted with treatments initiated here in the ED. discussed with our hospitalist. - Lab Data Lab results reviewed: Yes I reviewed the patient's lab results. Result diagrams: 05/09/17 10:17 05/09/17 10:16 Lab Results 05/09/17 05/09/17 05/09/17 Range/Units 10:16 10:16 10:16 WBC (4.5-11.0) K/mcL RBC (4.50-5.90) M/mcL Hgb (13.5-16.5) g/dL Hct (41.0-55.0) % MCV (80.0-100.0) fL MCH (26.0-34.0) pg MCHC (31.0-36.0) g/dL RDW (11.5-14.5) % Plt Count (140-440) K/mcL MPV (7.4-10.4) fL Total Counted Seg Neutrophils % (38-78) % Band Neutrophils % Lymphocytes % (15-49) % Monocytes % (Manual) (1-12) % Eosinophils % (Manual) (0-7) % Platelet Estimate (NORMAL) RBC Morphology (NORMAL) Anisocytosis (NONE SEEN) D-Dimer 0.86 H (0.00-0.40) ug/ml VBG Lactic Acid (0.5-2.2) mmol/L Sodium 141 (133-145) mmol/L Potassium 3.7 (3.3-5.1) mmol/L Chloride 101 (96-108) mmol/L Carbon Dioxide 28 (22-30) mmol/L Anion Gap 12.0 (8-16) BUN 13 (6-20) mg/dl Creatinine 0.9 (0.7-1.2) mg/dl GFR Calculation 93 Glucose 152 H (70-105) mg/dL Calcium 8.9 (8.6-10.4) mg/dl Total Bilirubin 0.5 (0.0-1.0) mg/dL AST 40 H (0-37) U/l ALT 39 (0-40) U/l Alkaline Phosphatase 123 H (39-117) U/L Troponin T < 0.01 (0-0.03) ng/ml NT-Pro-B Natriuret Pep (0-125) pg/ml Total Protein 8.3 (5.9-8.4) gm/dL Albumin 3.8 (3.2-5.2) gm/dL Globulin 4.5 H (2.2-3.7) gm/dL Albumin/Globulin Ratio 0.8 L (1.0-2.3) 05/09/17 05/09/17 05/09/17 Range/Units 10:16 10:17 10:17 WBC 5.3 (4.5-11.0) K/mcL RBC 4.40 L (4.50-5.90) M/mcL Hgb 13.6 (13.5-16.5) g/dL Hct 40.1 L (41.0-55.0) % MCV 91.2 (80.0-100.0) fL MCH 30.8 (26.0-34.0) pg MCHC 33.8 (31.0-36.0) g/dL RDW 16.1 H (11.5-14.5) % Plt Count 125 L (140-440) K/mcL MPV 7.8 (7.4-10.4) fL Total Counted 100 Seg Neutrophils % 58 (38-78) % Band Neutrophils % Not Reportable Lymphocytes % 31 (15-49) % Monocytes % (Manual) 4 (1-12) % Eosinophils % (Manual) 7 (0-7) % Platelet Estimate Decreased A (NORMAL) RBC Morphology Abnorm A (NORMAL) Anisocytosis 1+ A (NONE SEEN) D-Dimer (0.00-0.40) ug/ml VBG Lactic Acid 1.4 (0.5-2.2) mmol/L Sodium (133-145) mmol/L Potassium (3.3-5.1) mmol/L Chloride (96-108) mmol/L Carbon Dioxide (22-30) mmol/L Anion Gap (8-16) BUN (6-20) mg/dl Creatinine (0.7-1.2) mg/dl GFR Calculation Glucose (70-105) mg/dL Calcium (8.6-10.4) mg/dl Total Bilirubin (0.0-1.0) mg/dL AST (0-37) U/l ALT (0-40) U/l Alkaline Phosphatase (39-117) U/L Troponin T (0-0.03) ng/ml NT-Pro-B Natriuret Pep 50.8 (0-125) pg/ml Total Protein (5.9-8.4) gm/dL Albumin (3.2-5.2) gm/dL Globulin (2.2-3.7) gm/dL Albumin/Globulin Ratio (1.0-2.3) - Radiology Data Radiology results reviewed: Yes I reviewed the patient's radiology results. Disposition Pt seen by BUSINESS PROJECT ANALYST/PA only: No Clinical Impression: COPD exacerbation Disposition: Xfer As Inpt ([facility]) Condition: Good Referrals: Vic Nayak MD [Primary Care Provider] -
[2017-05-09] MEDS ORDERED: LACTATED RINGERS 1,000 ML IV ONE (10:30)
[2017-05-09] MEDS ORDERED: methylPREDNISolone SOD SUCC 125 MG/2 ML VIAL IV ONE (10:30)
[2017-05-09] MEDS ORDERED: IPRATROPIUM/ALBUTEROL 3 ML AMPUL.NEB NEB ONE (10:30)
[2017-05-09 10:59] LABS: Mean Cell Volume 91.2 fL (80.0-100.0); Mean Corpuscular HGB Conc 33.8 g/dL (31.0-36.0); Mean Corpuscular Hemoglobin 30.8 pg (26.0-34.0); Platelet Count 125 K/mcL (140-440); Red Cell Distribution Width 16.1 % (11.5-14.5)
[2017-05-09 11:20] LABS: ALT/SGPT 39 U/l (0-40); Albumin 3.8 gm/dL (3.2-5.2); Albumin/Globulin Ratio 0.8 (1.0-2.3); Alkaline Phosphatase 123 U/L (39-117); Blood Urea Nitrogen 13 mg/dl (6-20); proBNP 50.8 pg/ml (0-125)
[2017-05-09 11:21] LABS: Anisocytosis 1+ (NONE SEEN); Eosinophils % (Manual) 7 % (0-7); Lymphocytes % 31 % (15-49); Monocytes % (Manual) 4 % (1-12); Platelet Estimate DECREASED (NORMAL); RBC Morphology ABNORM (NORMAL); Segmented Neutrophils % 58 % (38-78)
--- NOTE | 2017-05-09 11:51 | XRay Report ---
CLINICAL INFORMATION: Dyspnea COMPARISON: 04/13/2017 FINDINGS: The heart is borderline enlarged, but unchanged. Mild thoracic aortic ectasia are again noted. Remaining mediastinum and pulmonary vessels are normal. Mild bibasilar scarring or atelectasis noted. There are no jose alejandro infiltrates or effusions. Bones and soft tissues normal IMPRESSION: Interval resolution in small patchy left basilar infiltrate. No acute disease Interpreted and Authenticated by: Nabeel Narvaez 05/09/17
--- NOTE | 2017-05-09 13:31 | Cat Scan Report ---
CLINICAL INFORMATION: Hypoxia with productive cough COMPARISON: None. TECHNIQUE: 80 cc of Isovue-300 were injected intravenously. Using SmartPrep to maximize pulmonary artery opacification, 2.5 mm helical slices were obtained from the lung apices through the lung bases. Following reconstruction, 2.5 mm sagittal, coronal, and axial reformations were processed. The exam was reviewed at mediastinal, lung, and bone windows. The exam was performed using radiation dose optimization techniques including, but not limited to, automated exposure control, adjustment of the mA and/or kV according to patient size and use of iterative reconstruction technique. FINDINGS: Pulmonary parenchymal windows show a moderate patchy groundglass infiltrate in the anterior segment of the left upper lobe - likely pneumonia. There is minimal scattered scarring and/or atelectasis in the peripheral aspects of both lower lobes. A focus of cicitration bronchiectasis is seen in the medial basilar segment of the left lower lobe. There are no effusions. Mediastinal windows show the heart is moderately enlarged. There is extraordinarily heavy fibrofatty calcific atherosclerotic plaque throughout the left anterior descending coronary artery: Suspect severe stenosis or occlusion. Calcification noted in the aortic valve. Small hiatal hernia is noted. There is no adenopathy in the mediastinal hilar or axillary regions. The pulmonary arteries and thoracic aorta are opacified and normal in contour and caliber. Images through the abdomen show moderate cirrhotic changes with evidence for portal hypertension featuring dilatation of the portal vein and a large varices in the perisplenic, peripancreatic, perigastric and lower paraesophageal region. There is no ascites. Spleen is mildly enlarged. Similar findings were seen on a lumbar CT from 2015. Bone windows show no osseous abnormality IMPRESSION: 1. No evidence of pulmonary embolus 2. Moderate patchy groundglass infiltrate - anterior segment left upper lobe 3. Extremely heavy atherosclerotic plaque in the left anterior descending coronary artery which may indicate occlusion or severe stenosis. Suggest dedicated CT coronary arteriogram 4. Cirrhotic changes with evidence for portal hypertension featuring lower esophageal gastric splenic varices and splenomegaly. There are also noted on a [address] Interpreted and Authenticated by: Nabeel Narvaez 05/09/17
[2017-05-09 13:49] LABS: Appearance,Urine CLEAR; Bilirubin,Urine NEG (NEG); Color,Urine YELLOW; Glucose,Urine (UA) NEGATIVE (NEG); Leukocyte Esterase,Urine NEG /uL (NEG); Protein,Urine NEG (NEG); Specific Gravity,Urine 1.013 (1.000-1.035); Urine Blood NEG mg/dL (<0.03); Urobilinogen,Urine NEG (NEG)
[2017-05-09] MEDS ORDERED: ACETAMINOPHEN 325 MG TABLET PO PRN (15:03)
[2017-05-09] MEDS ORDERED: IPRATROPIUM/ALBUTEROL 3 ML AMPUL.NEB NEB PRN (15:03)
[2017-05-09 15:56] LABS: Hemoglobin A1C 5.7 % HGB (4.0-6.0)
[2017-05-09] MEDS ORDERED: ALBUTEROL SULFATE 1 PUFF INHALER INH PRN (17:33)
[2017-05-09] MEDS: 0.9 % SODIUM CHLORIDE 10 ML SYRINGE IV SCH (20:23)
[2017-05-09] MEDS: morphine 15 MG TAB.SR.12H PO SCH (20:23)
--- NOTE | 2017-05-09 20:27 | Internal Med History&Physical ---
Medical - H&P: [facility] Patient information: Note initiated : 05/09/17 at 8:17 pm Service Date, if different from initiated Date: [] Patient: John Thomas a 61 y/o M admitted on 05/09/17 for Low O2 SATs, Pale, Productive Cough, Alt LOC. History of present illness: Mr. Thomas is a 61 year old M, brought to ED by plug shaper hand, with AMS and low oxygen saturation in the high 80's. Patient is on multiple meds for chronic back pain and has history of VIET, but is usually not hypersomnolent like this am. Patient uses CPAP machine for VIET. He smokes about 3 cigs daily. He was admitted to [facility] 04/13-04/15 with hypersomnolence (aw with mild respiratory acidosis pH 7.37 with pCO2 57 pO2 67) and small LLL infiltrate. Patient has chronic back pain, S/P craniotomy and has history of depression, is on multiple meds. It was thought that he was somnolent due to meds, and possibly obesity-hypoventilation syndrome. In ED he underwent CTA-chest to evaluate for PE, which was negative. He received a neb treatment for possible COPD exacerbation. 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 Since then has been 'forgetful' and impulsive'. However, is still active. C/O chronic back pain due to injury many years ago. 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 Has plug shaper hand for few hours daily Functional capacity: independent ambulation Smoking status: Current every day smoker Have you smoked in the last 12 months: Yes Drug use: none Alcohol use: none Medical - H&P: Meds Home Medications Medication Instructions Recorded Confirmed Type DULoxetine HCL [Cymbalta] 60 mg PO DAILY 11/01/14 05/09/17 History OLANZapine [Olanzapine] 20 mg PO HS 11/01/14 05/09/17 History lamoTRIgine [Lamictal] 200 mg PO DAILY 11/01/14 05/09/17 History morphine [Ms Contin] 15 mg PO BID 11/01/14 05/09/17 History Furosemide [Lasix] 20 mg PO DAILY 12/18/14 05/09/17 History Albuterol Sulfate [Ventolin] 2 puff INH Q4HP PRN 04/13/17 05/09/17 History Gabapentin [Neurontin] 600 mg PO HS 04/13/17 05/09/17 History Tiotropium [place] [Spiriva] 18 mcg INH DAILY 04/13/17 05/09/17 History amLODIPine [Norvasc] 5 mg PO DAILY 04/13/17 05/09/17 History buPROPion HCL [Wellbutrin Xl] 300 mg PO DAILY 04/13/17 05/09/17 History levETIRAcetam [Keppra] 250 mg PO HS 04/13/17 05/09/17 History Allergies Allergy/AdvReac Type Severity Reaction Status Date / Time lorazepam [From Ativan] AdvReac Intermediate "makes me Verified 04/13/17 12:25 go crazy" Medical - H&P: Exam - Constitutional Vitals: Temp Pulse Resp BP Pulse Ox 97.0 F 79 20 123/68 93 05/09/17 09:58 05/09/17 15:05 05/09/17 15:08 05/09/17 15:08 05/09/17 15:08 General appearance: no acute distress, obese - Head Head exam: Present: normal inspection - Respiratory Respiratory exam: Present: decreased breath sounds - Cardiovascular Cardiovascular exam: Present: normal rate and rhythm - GI/Abdominal GI/Abdominal exam: Present: normal bowel sounds, soft - Rectal Rectal exam: Present: deferred - Extremities Exam Extremities exam: Present: normal inspection Medical - H&P: Reslt - Labs CBC & Chem 7: 05/09/17 10:17 05/09/17 10:16 Labs: Short CBC 05/09/17 Range/Units 10:17 WBC 5.3 (4.5-11.0) K/mcL Hgb 13.6 (13.5-16.5) g/dL Hct 40.1 L (41.0-55.0) % Plt Count 125 L (140-440) K/mcL BMP 05/09/17 10:16 Sodium 141 Potassium 3.7 Chloride 101 Carbon Dioxide 28 BUN 13 Creatinine 0.9 Glucose 152 H Calcium 8.9 Cardiac Enzymes 05/09/17 Range/Units 10:16 Troponin T < 0.01 (0-0.03) ng/ml Liver Function 05/09/17 Range/Units 10:16 Total Bilirubin 0.5 (0.0-1.0) mg/dL AST 40 H (0-37) U/l ALT 39 (0-40) U/l Alkaline Phosphatase 123 H (39-117) U/L Albumin 3.8 (3.2-5.2) gm/dL Urine 05/09/17 Range/Units 13:13 Urine Color Yellow Urine Appearance Clear Urine pH 7.0 (5.0-9.0) Ur Specific [place] 1.013 (1.000-1.035) Urine Protein Neg (NEG) mg/dL Urine Glucose (UA) Negative (NEG) mg/dL - ABG Interpretation Interpretation: respiratory acidosis, metabolic alkalosis - Imaging and Cardiology CT scan - chest Additional comments: CTA-Chest: 1. No evidence of pulmonary embolus 2. Moderate patchy groundglass infiltrate - anterior segment left upper lobe 3. Extremely heavy atherosclerotic plaque in the left anterior descending coronary artery which may indicate occlusion or severe stenosis. Suggest dedicated CT coronary arteriogram 4. Cirrhotic changes with evidence for portal hypertension featuring lower esophageal gastric splenic varices and splenomegaly. There are also noted on a [address] Medical - H&P: A/P (1) Hypersomnolence Current visit: Yes Status: Acute a/w acute respiratory acidosis due to hypoventilation. Probaby related to narcotics, anti-depressant meds and anti-seziure meds. Previous attempts (last admission) to lower/change meds resulted in resistance.Continue CPAP HS and during sleep. (2) COPD (chronic obstructive pulmonary disease) Current visit: Yes Status: Acute Continue nebs. No indication for systemic steroids for now. (3) VIET (obstructive sleep apnea) Current visit: Yes Status: Chronic Continue CPAP. May have to check home machine to ensure proper functioning. (4) Obesity due to excess calories Current visit: Yes Status: Chronic Nutritional counseling provided during last admission. Will check A1C (5) Chronic back pain greater than 3 months duration Current visit: Yes Status: Chronic On MS contin 15 mg BID. Continue. (6) History of craniotomy Current visit: Yes Status: Chronic Continue anti-seizure meds (7) Depression Current visit: Yes Status: Acute Continue wellbutrin - Narrative A/P Narrative: See above DVT prophylaxis: Lovenox Code status: FULL
[2017-05-09] MEDS ORDERED: OLANZapine 5 MG TABLET PO SCH (21:00)
[2017-05-09] MEDS ORDERED: GABAPENTIN 300 MG CAPSULE PO SCH (21:00)
[2017-05-09] MEDS ORDERED: levETIRAcetam 500 MG TABLET PO SCH (21:00)
[2017-05-10] MEDS: morphine 15 MG TAB.SR.12H PO SCH (08:16)
[2017-05-10] MEDS: 0.9 % SODIUM CHLORIDE 10 ML SYRINGE IV SCH (08:24)
[2017-05-10] MEDS ORDERED: lamoTRIgine 100 MG TABLET PO SCH (09:00)
[2017-05-10] MEDS ORDERED: amLODIPine 5 MG TABLET PO SCH (09:00)
[2017-05-10] MEDS ORDERED: ENOXAPARIN 40 MG/0.4 ML SYRINGE SQ SCH (09:00)
[2017-05-10] MEDS ORDERED: DULoxetine 30 MG CAPSULE PO SCH (09:00)
[2017-05-10] MEDS ORDERED: TIOTROPIUM BROMIDE 18 MCG INHALANT INH SCH (09:00)
[2017-05-10] MEDS ORDERED: FUROSEMIDE 20 MG TABLET PO SCH (09:00)
[2017-05-10] MEDS ORDERED: buPROPion 150 MG TAB.XL.24H PO SCH (09:00)
[2017-05-10] MEDS ORDERED: PNEUMOCOCCAL 23-VAL P-SAC VAC 0.5 ML VIAL IM ONE (10:00)
--- NOTE | 2017-05-10 12:08 | Discharge Summary ---
Medical - DS: Prov Patient information: Note initiated : 05/10/17 at 11:54 am Service Date, if different from initiated Date: [] Patient: John Thomas 61 y/o M admitted on 05/09/17 for Low O2 SATs, Pale, Productive Cough, altered mental status. Date of admission: 05/09/17 15:08 Discharge date: 05/10/17 Primary care physician: Vic Nayak Consults: 05/09/17 13:42 Consult to Physician [CONS] Stat Comment: Consulting Provider: Anusha Daley Reason For Exam: Physician to Consult Medical - DS: Meds - Discharge Medications Prescriptions: OLANZapine [Zyprexa] 5 mg PO HS #90 tablet Active and Home Medications: Home Medications DULoxetine HCL [Cymbalta] 60 mg PO DAILY 11/01/14 [History Confirmed 05/09/17 Last Taken 05/09/17 07:30] OLANZapine [Olanzapine] 20 mg PO HS 11/01/14 [History Confirmed 05/09/17 Last Taken 05/08/17 21:00] lamoTRIgine [Lamictal] 200 mg PO DAILY 11/01/14 [History Confirmed 05/09/17 Last Taken 05/09/17 07:30] morphine [Ms Contin] 15 mg PO BID 11/01/14 [History Confirmed 05/09/17 Last Taken 05/09/17 07:30] Furosemide [Lasix] 20 mg PO DAILY 12/18/14 [History Confirmed 05/09/17 Last Taken 05/09/17 07:30] Albuterol Sulfate [Ventolin] 2 puff INH Q4HP PRN 04/13/17 [History Confirmed Last Taken 05/09/17 07:30] Gabapentin [Neurontin] 600 mg PO HS 04/13/17 [History Confirmed 05/09/17 Last Taken 05/08/17 21:00] Tiotropium [place] [Spiriva] 18 mcg INH DAILY 04/13/17 [History Confirmed Last Taken 05/09/17 07:30] amLODIPine [Norvasc] 5 mg PO DAILY 04/13/17 [History Confirmed 05/09/17 Last Taken 05/09/17 07:30] buPROPion HCL [Wellbutrin Xl] 300 mg PO DAILY 04/13/17 [History Confirmed Last Taken 05/09/17 07:30] levETIRAcetam [Keppra] 250 mg PO HS 04/13/17 [History Confirmed 05/09/17 Last Taken 05/08/17 21:00] Medical - DS: Hosp Hospital course: Mr. Thomas is a 61 year old M, brought to ED by gallery or museum attendant, with AMS and low oxygen saturation in the high 80's. Patient is on multiple meds for chronic back pain and has history of VIET, but is usually not hypersomnolent like this am. Patient uses CPAP machine for VIET. He smokes about 3 cigs daily. He was hospitalized 04/13-04/15 with hypersomnolence (a/w with mild respiratory acidosis pH 7.37 with pCO2 57 pO2 67) and small LLL infiltrate. Patient has chronic back pain, S/P craniotomy and has history of depression, is on multiple meds. It was thought that he was somnolent due to meds, and possibly obesity- hypoventilation syndrome. In ED he underwent CTA-chest to evaluate for PE, which was negative. He received a neb treatment for possible COPD exacerbation. 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 Since then has been 'forgetful' and impulsive'. However, is still active. C/O chronic back pain due to injury many years ago. Hospital course: Patient was admitted for hypersomnolence associated with mild respiratory acidosis. There was no evidence of an acute illness. VS were normal and patient was afebrile and denies having any complaints. As he is on multiple medications with sedative side effects, careful medication reconciliation was done. He was agreeable to reduce the Olanzapine to 5 mg HS, which was well tolerated. Patient was on his home CPAP machine HS. It was noted that he had significant desats to 80% for prolonged periods of time. 2L O2 bleed was provided via the CPAP machine and this maintained oxygen saturations > 90%. Patient had a CPAP study done in Sep 2014 which showed O2 sats around 90% on RA. BW was 245 lb. His current weight is 277 lb. Patient and his gallery or museum attendant were instructed to make an oswald for FU with Dr Vic Nayak for a repeat CPAP study. Discharge diagnosis: Hypersomnolence, VIET, obesity Secondary discharge diagnosis: Left ventricular diastolic dysfunction (Chronic 04/14/15) Left ventricular hypertrophy (Chronic 04/14/15) Brain abscess (Acute), S/P craniotomy Fall at home (Acute) Gait instability (Acute) Reason for admission: AMS, resolved Pertinent studies/significant findings: ABG on RA: pH 7.37 with pCO2 57 pO2 67 CTA-chest: negative for PE Nocturnal oximetry while on CPAP : oxygen desats to 80%. Required 2 L O2 bleed to maintain sats around 90% Complications: None Time spent discussing smoking cessation with patient: 3 to 10 minutes - Time Spent with Patient Total time spent providing and/or coordinating discharge services: Greater than 30 minutes Medical - DS: Exam - Constitutional Vitals: Vital Signs Temp Pulse Pulse Resp BP BP Pulse Ox 05/10/17 08:00 91 05/10/17 07:02 97.9 F 77 18 130/70 93 05/10/17 04:00 99.4 F H 69 18 115/70 90 05/10/17 02:05 88 90 05/10/17 00:00 99.0 F H 83 18 128/71 91 05/09/17 23:19 90 05/09/17 21:00 91 05/09/17 20:36 93 05/09/17 20:00 97.4 F 93 H 18 148/80 92 05/09/17 15:08 20 123/68 93 05/09/17 15:05 79 14 113/64 91 05/09/17 14:32 79 14 113/64 91 05/09/17 14:01 81 18 126/81 91 05/09/17 13:35 81 112/73 94 05/09/17 12:32 79 17 115/72 92 05/09/17 12:01 79 13 104/64 91 Intake and Output 05/09/17 05/10/17 05/10/17 21:59 05:59 13:59 Intake Total 1120 / 1120 525 / 525 360 / 360 Balance 1120 / 1120 525 / 525 360 / 360 Intake: IV 1000 / 1000 Lactated Ringers 1,000 ml @ 1000 / 1000 Wide Open IV .Q0M ONE Rx#: [id number] Oral 120 / 120 525 / 525 360 / 360 Other: Meal Dinner Breakfast Percent of Meal Consumed 100% 100% # Voids 1 Weight 272 lb General appearance: obese - Respiratory Respiratory exam: Present: normal respiratory exam - Cardiovascular Cardiovascular exam: Present: normal rate and rhythm - Extremities Exam Extremities exam: Present: normal inspection Medical - DS: Data Labs on day of discharge: Labs from last 24 hours 05/09/17 05/09/17 13:13 10:16 Hemoglobin A1c 5.7 Estim Average Glucose 117 Urine Color Yellow Urine Appearance Clear Urine pH 7.0 Ur Specific [place] 1.013 Urine Protein Neg Urine Glucose (UA) Negative Urine Ketones Neg Urine Occult Blood Neg Urine Nitrate Neg Urine Bilirubin Neg Urine Urobilinogen Neg Ur Leukocyte Esterase Neg Ur Culture Indicated? No - Additional Comments 1. No evidence of pulmonary embolus 2. Moderate patchy groundglass infiltrate - anterior segment left upper lobe 3. Extremely heavy atherosclerotic plaque in the left anterior descending coronary artery which may indicate occlusion or severe stenosis. Suggest dedicated CT coronary arteriogram 4. Cirrhotic changes with evidence for portal hypertension featuring lower esophageal gastric splenic varices and splenomegaly. There are also noted on a [address] Medical - DS: A/P - Patient/Caregiver Discharge Instructions Activity: increase activity as tolerated Diet: Cardiac Additional Instructions: Healthy diet recommended with goal to loose weight, or at least maintain weight. There was a weight gain of 32 lbs since 2015. - Problem Maintenance (1) Hypersomnolence Status: Acute Comment: Needs repeat sleep study on CPAP. Reduce meds that can cause drowsiness if possible. Olanzapine was reduced from 10 to 5 mg HS, which was well tolerated (2) COPD (chronic obstructive pulmonary disease) Status: Chronic Qualifiers: COPD type: unspecified COPD Qualified Code(s): J44.9 - Chronic obstructive pulmonary disease, unspecified (3) VIET (obstructive sleep apnea) Status: Chronic (4) Obesity due to excess calories Status: Chronic Qualifiers: Body mass index: BMI 39.0-39.9 (5) Chronic back pain greater than 3 months duration Status: Chronic (6) History of craniotomy Status: Chronic (7) Depression Status: Chronic - Follow up Plan Follow up with: Vic Nayak MD [Primary Care Provider] - Nabeel Fuller MD [Referring] - (VIET. Had sleep and CPAP study in 2014. Weight 245 lb. Now 277 lb. While in hospital using own CPAP machine was noted desats to 80% for significant amount of time. Required 2 L to keep sats around 90%. Please, consider for repeat CPAP study.) Disposition: Home, Self-Care Prognosis: Good Rehab Potential: Fair Overall status at discharge: patient is progressing back to baseline
== END 2017-05-10 14:08 | disposition home or self-care (01) ==
LOC: MEDSUR 09:57 → ED 09:57 → MEDSUR 15:05
PROVIDERS: ADMIT Specialist; ATTEND Specialist